=== PATIENT | male | born 1970 | race Caucasian/White ===

== ENCOUNTER 2016-09-11 10:14 | Emergency (ER) | payer SELFPAY ==
[~2016-09-11] VITALS: Ht 172.7 cm; Wt 125.0 kg
--- NOTE | 2016-09-11 13:16 | NUR ---
This nurse went in to depart pt and pt was not in room. MD stated pt had googled the diagnosis.
[2016-09-11 13:17] VITALS: BP 131/79
== END 2016-09-11 13:17 | disposition home or self-care (01) ==
LOC: ED 10:18
DX: M72.2 Plantar fascial fibromatosis (principal)
CPT/HCPCS: 73650; 99282; 99283